=== PATIENT | female | born 1995 | race Caucasian/White ===

== ENCOUNTER 2019-05-24 07:36 | Emergency (ER) | payer BC, OTHER ==
[~2019-05-24] VITALS: Ht 175.3 cm; Wt 63.5 kg
[2019-05-24] MEDS ORDERED: EFFEXOR 5050 MG/1 T1 PO (07:59)
[2019-05-24] MEDS ORDERED: TESSALON PERLE100 MG PO (08:49)
[2019-05-24] MEDS ORDERED: GUAIFEN-CODEINE10 ML PO (09:05)
[2019-05-24 09:13] VITALS: BP 115/74
== END 2019-05-24 09:15 | disposition home or self-care (01) ==
LOC: ER 07:36
DX: J06.9 Acute upper respiratory infection, unspecified (principal); F17.210 Nicotine dependence, cigarettes, uncomplicated; Z90.89 Acquired absence of other organs